=== PATIENT | male | born 1955 | race Caucasian/White ===

== ENCOUNTER 2018-09-29 10:49 | Day surgery (SDC) | payer MEDICARE, OTHER ==
[~2018-09-29] VITALS: Ht 167.6 cm; Wt 100.1 kg
[2018-09-29 12:18] VITALS: BP 155/86; PULSE 76; TEMP 97.5
[2018-09-29] MEDS ORDERED: RT ADVAIR 528 DISKUS IH (12:54)
[2018-09-29] MEDS ORDERED: PRINZIDE 12.5 M1 TA1 PO (12:55)
[2018-09-29] MEDS ORDERED: PREVACID 30MG30 M1 PO (12:58)
[2018-09-29 14:45] VITALS: BP 149/84; PULSE 79; TEMP 97.8
[2018-09-29 15:00] VITALS: BP 155/89; PULSE 77
[2018-09-29 15:15] VITALS: BP 166/87; PULSE 73
== END 2018-09-29 15:36 | disposition home or self-care (01) ==
LOC: SDCO 10:49
DX: N13.5 Crossing vessel and stricture of ureter without hydronephrosis (principal); R31.0 Gross hematuria; J44.9 Chronic obstructive pulmonary disease, unspecified; K21.9 Gastro-esophageal reflux disease without esophagitis; I10 Essential (primary) hypertension; Z85.51 Personal history of malignant neoplasm of bladder; Z90.49 Acquired absence of other specified parts of digestive tract; Z87.891 Personal history of nicotine dependence
CPT/HCPCS: C1726; C1769; C2617; J0690; J1100; J1885; J1940; J2405; J2704; J3010; J7120; Q9967

== ENCOUNTER 2018-10-05 06:54 | Day surgery (SDC) | payer MEDICARE, OTHER ==
[2018-10-05] VITALS (9 sets, daily range): BP systolic 137–166; BP diastolic 46–95; PULSE 85–95; TEMP 98
[~2018-10-05] VITALS: Ht 167.6 cm; Wt 99.3 kg
[~2018-10-05 06:54] MED LIST: PREVACID 30MG30 M1 PO; PRINZIDE 12.5 M1 TA1 PO; RT ADVAIR 528 DISKUS IH
== END 2018-10-05 15:45 | disposition home or self-care (01) ==
LOC: SDCO 06:54
DX: R31.0 Gross hematuria (principal); R93.41 Abnormal radiologic findings on diagnostic imaging of renal pelvis, ureter, or bladder; J44.9 Chronic obstructive pulmonary disease, unspecified; K21.9 Gastro-esophageal reflux disease without esophagitis; I10 Essential (primary) hypertension; Z90.49 Acquired absence of other specified parts of digestive tract; Z85.51 Personal history of malignant neoplasm of bladder; Z87.891 Personal history of nicotine dependence; Z80.9 Family history of malignant neoplasm, unspecified
CPT/HCPCS: C1769; J0690; J1100; J1170; J2175; J2405; J2704; J3010; J7120; Q9967

== ENCOUNTER → 2018-11-08 | Outpatient (CLI) | payer MEDICARE, OTHER | LOC: COL.RAD 10:37 | DX: N28.89 Other specified disorders of kidney and ureter (principal); R31.0 Gross hematuria; R93.422 Abnormal radiologic findings on diagnostic imaging of left kidney; Z90.49 Acquired absence of other specified parts of digestive tract | CPT/HCPCS: Q9967 ==

== ENCOUNTER 2018-12-07 11:32 | Inpatient (IN) | payer MEDICARE, OTHER ==
[~2018-12-07] VITALS: Ht 167.6 cm; Wt 102.0 kg
[2018-12-12 08:15] LABS: ALBUMIN 4.1 gm/dL (3.5-5.0); BILIRUBIN,TOTAL 0.4 mg/dL (0.0-1.0); CALCIUM 9.8 mg/dL (8.4-10.2); CREATININE, serum 0.76 mg/dL (0.66-1.25); POTASSIUM 4.3 mmol/L (3.4-5.0); TOTAL PROTEIN 7.2 gm/dL (6.4-8.2)
[2018-12-13] VITALS (11 sets, daily range): BP systolic 94–144; BP diastolic 67–89; PULSE 74–110; TEMP 97.7–98.5
--- NOTE | 2018-12-13 18:25 | NUR ---
Pt arrived to floor at 1800 via bed with PACU staff. Awake and alert, feeling well, requesting ice and ice water. VSS. 02 at 2LNC. De Guzman draining red urine in scant amount. ROSSY to abd draining red serous fluid. Epidural at 8 ccs and hour and has a demand dose as needed, discussed purpose and use. Called RT for IS. Lungs are wheezy expiratory, chronic issue for patient. L wrist is ART line is dressed and CDI. 3 lap sites, LUQ site has some bloody drainage and covered with bandaid, others are CDI. Midline abd dressing CDI. Pt doing well, family at bedside, will give bedside shift report to nightshift nurse who will resume care.
--- NOTE | 2018-12-13 19:30 | NUR ---
Received report from AMANDA Mac. Assessment completed. Patient is A&O x 4, answers all questions appropriately. Does appear to have some forgetfullness at this time. Patient is hooked up to post-op vitals, HR is tachycardiac in the low 100's. Currently on 3 liters of supplemental O2 via nasal cannula. Denies any pain. Epidural is intact running @ 8 ml/hr with a patient demand. Wheezing heard through lungs, clears with coughing. Abdominal lap sites x 3 with bandaids, drainage on two of the lap sites. Abdominal gauze/medipore dressing at the proximal end at shift change was saturated with drainage through gown and blankets, ABD applied to proximal area. Right sided ROSSY with bulb to suction, small amount of bloody output. Hypoactive bowel sounds, denies passing any gas. De Guzman catheter to DD with red-tinged urine draining, adequate urine output at this time. BLE scds on. IVF infusing with intermittent antibiotic per orders. Family is at bedside. Denies any concerns or needs at this time. Bed is in a low position with call light in reach.
--- NOTE | 2018-12-13 22:00 | NUR ---
Patient is sitting up in bed watching television. Has been tolerating water and ice chips with no c/o nausea, is not interested in this time of any other clear liquids. ABD that was applied to dressing at beginning of shift has remained CDI. De Guzman catheter continues to drain clear blood-tinged urine. Family has left for the evening. Patient denies any concerns or needs.
[2018-12-14] VITALS (9 sets, daily range): BP systolic 107–147; BP diastolic 61–89; PULSE 85–99; TEMP 98–98.8
--- NOTE | 2018-12-14 05:59 | NUR ---
Patient has rested intermittently through the night. VSS, titrated supplemental O2 down to 1 liter this morning. Epidural remains intact and infusing for pain control, continues to deny any pain. Abdominal lap sites and dressings have no additional drainage. ROSSY bulb to suction with a total of 50 ml of bloody output. De Guzman catheter to DD with bloody output, adequate urine output through this shift. IVF remains infusing with intermittent antibiotic per orders. Denies any concerns or needs, call light within reach.
[2018-12-14 06:07] LABS: BASO % 0.2 % (0.0-2.0); GRAN # 8.6 (1.4-6.5); GRAN % 83.8 % (42.2-75.2); HEMOGLOBIN 11.5 g/dl (13.5-18.0); LYMPH # 0.8 (1.2-3.4); LYMPH % 8.2 % (20.0-51.0); MEAN CELL VOLUME 89 fl (80.0-100.0); MEAN CORPUSCULAR HEMOGLOBIN 29 pg (27.0-31.0); MEAN CORPUSCULAR HGB CONC 33 g/dl (33.0-37.0); MEAN PLATELET VOLUME 10.3 fl (7.4-10.4); MONO # 0.8 (0.1-0.6); MONO % 7.5 % (1.7-9.3); PLATELET COUNT 197 K/mm3 (130-400); RED BLOOD COUNT 3.95 M/mm3 (4.20-5.60); REDCELL DISTRIBUTION WIDTH-CV 12.5 % (11.5-14.5)
[2018-12-14 06:09] LABS: HEMATOCRIT 35.2 % (42.0-52.0)
[2018-12-14 06:25] LABS: CALCIUM 7.7 mg/dL (8.4-10.2); CREATININE, serum 1.65 mg/dL (0.66-1.25); POTASSIUM 4.1 mmol/L (3.4-5.0)
--- NOTE | 2018-12-14 06:30 | NUR ---
Report on to Chacha RN. Pt. VSS. IV/INT RT hand no swelling, redness, drainage. Breakfast ordered CL Diet. Epidural site no redness, drainage, swelling. Dsg on abdomen CDI. Pt. sitting up on bed call light within reach.
--- NOTE | 2018-12-14 09:00 | NUR ---
Patient alert and oriented, answers questions appropriately. See assessment. Abdomen soft, non distended, non tender. Bowel sounds distant. No flatus. Lap sites and transverse incision with dressing clean, dry and intact. ROSSY drain to RUQ compressed, bloody drainage noted. De Guzman catheter patent and draining clear red urine. Epidural catheter in place with no drainage noted at site. PCEA settings verified against the MAR. Numbness noted to abdomen to mid bilateral thighs, pulses palpable. No other c/o at this time.
--- NOTE | 2018-12-14 09:34 | NUR ---
Initial visit; Patient thanked Test Car Driver for looking in on him and keeping him in her prayers.
--- NOTE | 2018-12-14 10:00 | NUR ---
Report off to Chacha PATEL epidural dsg was coming off. Applied tegaderm. No redness, drainage, or edema.
--- NOTE | 2018-12-14 13:26 | NUR ---
Report off to Chacha PATEL. Pt. AOx4 VSS. In bed call light within reach and at bedside. F/U with pain and pain is at 0/10. IV site LT antecubital no redness drainage or edema.
--- NOTE | 2018-12-14 13:35 | NUR ---
SHITAL and SW student met with the patient and the patient's to discuss discharge plan. The patient lives in [place] with his , Kat. The patient does not have any DME and reports independence with ADLs. The patient's PCP is Dr. Mu Lassiter and he receives his medications through [facility] or at [facility] in [place]. The patient's advance directives are in EMR. The patient plans to return home with his upon discharge. No additional needs at this time.
--- NOTE | 2018-12-14 20:00 | NUR ---
Pt. sitting up in bed at this time. Pt. is A&OX3, assessment complete. IV to rt. hand patent, IV fluids infusing per orders. Epidural intact, pt. denies pain. Abd. incisions with gauze dressing CDI. ROSSY drain with serosanguinous drainage noted. Pt. denies further needs, call light within reach.
[2018-12-15 04:51] VITALS: BP 121/64; PULSE 81; TEMP 98.2
[2018-12-15 06:07] LABS: HEMOGLOBIN 10.8 g/dl (13.5-18.0); MEAN CELL VOLUME 90 fl (80.0-100.0); MEAN CORPUSCULAR HEMOGLOBIN 30 pg (27.0-31.0); MEAN CORPUSCULAR HGB CONC 33 g/dl (33.0-37.0); MEAN PLATELET VOLUME 10.3 fl (7.4-10.4); PLATELET COUNT 160 K/mm3 (130-400); RED BLOOD COUNT 3.66 M/mm3 (4.20-5.60); REDCELL DISTRIBUTION WIDTH-CV 12.7 % (11.5-14.5)
--- NOTE | 2018-12-15 06:08 | NUR ---
Pt. slept well through the night. Pt. remains A&OX3. Epidural intact. Dressing to abd. incisions CDI, ROSSY drain with serosanguinous drainage. Pt. denies further needs at this time. Call light within reach.
[2018-12-15 06:11] LABS: HEMATOCRIT 32.8 % (42.0-52.0)
[2018-12-15 06:14] LABS: CREATININE, serum 1.51 mg/dL (0.66-1.25); POTASSIUM 3.9 mmol/L (3.4-5.0)
--- NOTE | 2018-12-15 07:50 | NUR ---
Patient alert and oriented, answers questions appropriately. See assessment. Abdomen firm, distended. Bowel sounds audible x4 quads. ROSSY to RLQ with bloody drainage noted, bulb compressed. Midline incision with edges well approximated, terra intact, redness noted around midline. Lap sites x4 with edges well approximated, terra intact. De Guzman catheter patent and draining clear dark red urine, no clots noted. Epidural catheter intact, no redness or drainage noted at site. PCEA shut off at this time per drs order. C/o mild bloating, encouraged ambulation and warm blanket to abdomen. No other c/o at this time.
[2018-12-15 08:00] VITALS: BP 149/69; PULSE 84; TEMP 98.3
[2018-12-15 08:04] VITALS: TEMP 98.3
--- NOTE | 2018-12-15 08:05 | NUR ---
ROSSY drain removed from RLQ per drs order.
[2018-12-15 12:00] VITALS: BP 136/54; PULSE 88; TEMP 98.4
--- NOTE | 2018-12-15 13:14 | NUR ---
Patient sitting in recliner. Call light within reach. De Guzman intact, INT/ epidural site no redness, drainage, or edema. Dsg on RLQ clear with tegaderm. Incision sites CDI.
[2018-12-15 15:55] VITALS: BP 156/74; PULSE 85; TEMP 98.1
--- NOTE | 2018-12-15 20:30 | NUR ---
Pt. sitting up in bed watching TV at this time. Pt. is A&OX3, assessment complete. INT to rt. hand patent. De Guzman catheter to DD, reddish urine noted. Abd. incision well approximated. PT. denies pain or other needs at this time. Call light within reach.
[2018-12-15 21:10] VITALS: BP 123/61; PULSE 83; TEMP 98
[2018-12-16 05:36] VITALS: BP 166/70; PULSE 78; TEMP 98.3
--- NOTE | 2018-12-16 06:37 | NUR ---
Pt. laying in bed. Pt. is A&OX3. INT to rt. hand patent. Pt. denies pain. De Guzman catheter to DD with red urine noted. Pt. denies pain or other needs, call light within reach.
[2018-12-16 08:26] VITALS: BP 129/83; PULSE 93; TEMP 98.3
[2018-12-16 12:35] VITALS: BP 124/61; PULSE 98; TEMP 99.2
[2018-12-16 16:29] VITALS: BP 142/79; PULSE 100; TEMP 98.4
--- NOTE | 2018-12-16 18:00 | NUR ---
Independent in halls with walker. Had loose stools x 2 in AM. De Guzman catheter draining vega red urine with rare clots. Catheter irrigated x one this shift. Complained of bladder spasms at times. Mild nausea. Appetite poor. Good urine output.
--- NOTE | 2018-12-16 20:45 | NUR ---
Pt resting in bed, co C/O pain at this time, shift assessments complete, left Pt call light in reach, bed in lowest position.
[2018-12-16 21:16] VITALS: BP 122/98; PULSE 86; TEMP 98.5
[2018-12-16 23:59] VITALS: BP 125/60; PULSE 89; TEMP 99.9
[2018-12-17] VITALS (12 sets, daily range): BP systolic 114–160; BP diastolic 42–75; PULSE 83–104; TEMP 97.5–98.7
--- NOTE | 2018-12-17 05:51 | NUR ---
Pt slept during the night, no C/O pain during the shift, he has had several small bowel movements and is passing gas, he was able to sit on the toilet early this AM with assistance, and using his walker. VS have remained stable.
[2018-12-17 06:54] LABS: HEMOGLOBIN 10.2 g/dl (13.5-18.0); MEAN CELL VOLUME 90 fl (80.0-100.0); MEAN CORPUSCULAR HEMOGLOBIN 30 pg (27.0-31.0); MEAN CORPUSCULAR HGB CONC 33 g/dl (33.0-37.0); MEAN PLATELET VOLUME 10.4 fl (7.4-10.4); PLATELET COUNT 173 K/mm3 (130-400); RED BLOOD COUNT 3.44 M/mm3 (4.20-5.60); REDCELL DISTRIBUTION WIDTH-CV 12.8 % (11.5-14.5)
[2018-12-17 07:00] LABS: CALCIUM 8.3 mg/dL (8.4-10.2); CREATININE, serum 1.44 mg/dL (0.66-1.25); POTASSIUM 3.9 mmol/L (3.4-5.0)
[2018-12-17 07:19] LABS: HEMATOCRIT 30.8 % (42.0-52.0)
--- NOTE | 2018-12-17 08:15 | NUR ---
Ambulatory in room. Complained of bladder spasms. De Guzman catheter draining vega red urine with small clots in tubing. Levsin given.
--- NOTE | 2018-12-17 09:30 | NUR ---
Dr. Holder saw patient and irrigated catheter. Talked to patient about plan for CT scan.
--- NOTE | 2018-12-17 10:20 | NUR ---
B&O suppository given for bladder pain.
--- NOTE | 2018-12-17 10:50 | NUR ---
Valium given per order prior to scan.
--- NOTE | 2018-12-17 13:00 | NUR ---
Dr. Holder talked with patient and spouse about CT results and plan for surgery.
--- NOTE | 2018-12-17 14:35 | NUR ---
Medicated with Morphine for c/o abdominal pain. NPO for surgery. Surgical consent signed.
--- NOTE | 2018-12-17 16:15 | NUR ---
To surgery per bed with OR staff. Family here.
--- NOTE | 2018-12-17 19:40 | NUR ---
Pt. arrived to the floor from PACU. Pt. is A&OX3, assessment complete. IV to rt. upper arm patent, IV fluids infusing per orders. De Guzman catheter to DD, clear vega red urine noted. Epidural intact. Abdominal midline incision CDI with gauze. ROSSY drain to abdomen, bloody drainage noted. Pt. denies pain or other needs at this time. Call light within reach.
[2018-12-18 00:25] VITALS: BP 104/50; PULSE 88; TEMP 98.3
[2018-12-18 05:02] VITALS: BP 123/48; PULSE 87; TEMP 98.6
--- NOTE | 2018-12-18 05:30 | NUR ---
Pt. laying in bed at this time. Pt. aroused to verbal stimuli. Pt. reports feeling the need to urinate, and pressure. Holm catheter manipulated to see if urine flowing. Pt. does have some urine flow. Pt. request to have catheter irrigated. Catheter irrigated with 20 mls of sterile water. Was able to retrieve all the irrigant instilled, one tiny clot noted. holm reconnected to holm bag. Gave pt. a Levsin and pt. pushed epidural button. Pt did report having some relief after that. IV to lt. hand patent, IV fluids infusing per orders. Bed Changed and pericare provided. Pt. denies further needs, call light within reach.
[2018-12-18 06:18] LABS: MEAN CELL VOLUME 93 fl (80.0-100.0); MEAN CORPUSCULAR HGB CONC 32 g/dl (33.0-37.0); MEAN PLATELET VOLUME 10.2 fl (7.4-10.4); PLATELET COUNT 185 K/mm3 (130-400); RED BLOOD COUNT 3.24 M/mm3 (4.20-5.60); REDCELL DISTRIBUTION WIDTH-CV 12.9 % (11.5-14.5)
[2018-12-18 06:31] LABS: HEMOGLOBIN 9.7 g/dl (13.5-18.0); MEAN CORPUSCULAR HEMOGLOBIN 30 pg (27.0-31.0)
[2018-12-18 06:35] LABS: CREATININE, serum 1.29 mg/dL (0.66-1.25)
--- NOTE | 2018-12-18 07:11 | NUR ---
report from Derrek PATEL.
[2018-12-18 07:21] VITALS: BP 132/65; PULSE 87; TEMP 98.4
--- NOTE | 2018-12-18 08:49 | NUR ---
DR HOUSTON IN TO SEE PATIENT. SEE COMPUTER FOR NEW ORDERS,. DRESSING TO MIDLINE CDI . ROSSY DRAIN WITH SANGUEOUS DRAINAGE.
[2018-12-18 11:59] VITALS: BP 104/77; PULSE 64; TEMP 98.2
[2018-12-18 16:09] VITALS: BP 109/55; PULSE 89; TEMP 98.8
--- NOTE | 2018-12-18 20:30 | NUR ---
Assessment completed. Patient is A&O x 4. VSS, on room air. Epidural is intact and infusing for pain control. Abdominal lap sites x 3 with terra intact and midline with gauze dressing with drainage noted. ROSSY bulb to suction with serosangeout output. Denies passing any gas. Bowel sounds present. Tolerating diet with no c/o nausea. De Guzman catheter to DD with pink urine draining with noticable clots. Patient reports that he's had bladder spasms this evening and thought his medication was scheduled, reviewed Levsin orders with patient and prn dose given this evening. IVF infusing per orders. Ambulated with assist x 2 out of the chair this evening and then standby assist with ambulating, patient has a steady gait. Denies any concerns or needs at this time, call light is within reach.
[2018-12-18 20:37] VITALS: BP 108/75; BP 168/75; PULSE 95; TEMP 98.2
[2018-12-19 02:13] VITALS: BP 129/70; PULSE 83; TEMP 98.5
--- NOTE | 2018-12-19 04:14 | NUR ---
Patient has been resting well through the night. VSS, remains on room air. Epidural remains intact and infusing for pain control. Levsin given per request around the clock as patient has bladder spasms that he reports come and go. Abdominal midline and ROSSY gauze dressing reinforced at this time due to drainage. Abdomen is soft and distended, reports passing gas. ROSSY had a total of 60 ml of serosangeious output. De Guzman catheter to DD with pink urine draining with small amount of clots noted. IVF remain infusing per orders. Denies any concerns or needs at this time, call light remains within reach.
--- NOTE | 2018-12-19 06:00 | NUR ---
Patient is up ambulating the hallway with staff at this time. Has made two laps around the surgical floor with walker, gait is steady.
[2018-12-19 07:36] VITALS: BP 130/63; PULSE 83; TEMP 97.6
[2018-12-19 07:57] LABS: MEAN CELL VOLUME 91 fl (80.0-100.0); MEAN CORPUSCULAR HGB CONC 33 g/dl (33.0-37.0); MEAN PLATELET VOLUME 9.9 fl (7.4-10.4); PLATELET COUNT 192 K/mm3 (130-400); RED BLOOD COUNT 3.25 M/mm3 (4.20-5.60); REDCELL DISTRIBUTION WIDTH-CV 12.8 % (11.5-14.5)
--- NOTE | 2018-12-19 08:00 | NUR ---
PATIENT IS A&O. VSS. DENIES PAIN. EPIDURAL INPLACE. PATIENT C/O BLOATING AND TIGHT ABD. ABD IS DISTENDED, FIRM AND WITH HYPO BOWL SOUNDS X4 QUADS. PATIENT IS PASSING GAS. NO BM YET. PATIENT ENCOURAGED TO CHEW GUM. EDUCATED ABOUT STRAWS AND CARBINATION. WARM BLANKET APPLIED TO ABD FOR COMFORT AND BOWL STIMULATION. ABD MIDLINE DRESSING IS CD&I WITH GAUZE. ABD LAP SITES X3 LAILA WITH SUJATA INTACT. ROSSY DRAIN TO COMPRESSION. DENIES C/O N/V. IV FLUIDS INFUSING VIA PUMP. VAN TO DEPENDENT DRAINAGE WITH MOD AMOUNTS OF PINL COLORED URINE WITH SEDIMENT NOTED. PATIENT C/O BLADDER SPASMS. GAVE SCHEDULED OXYBUTININ. PATIENT REFUSED B&O AT THIS TIME. WILL MONITOR. HEAD TO TOE ASSESSMENT COMPLETE. PATIENT UP IN BEDSIDE CHAIR WITH CALL LIGHT IN REACH.
[2018-12-19 08:03] LABS: HEMATOCRIT 29.5 % (42.0-52.0); HEMOGLOBIN 9.6 g/dl (13.5-18.0); MEAN CORPUSCULAR HEMOGLOBIN 30 pg (27.0-31.0)
[2018-12-19 08:09] LABS: CALCIUM 8.1 mg/dL (8.4-10.2); CREATININE, serum 1.16 mg/dL (0.66-1.25); POTASSIUM 3.8 mmol/L (3.4-5.0)
--- NOTE | 2018-12-19 11:45 | NUR ---
DC'D ROSSY DRAIN PER ORDERS. PATIENT TOLERATED WELL. COVERED SITE WITH 4X4'S AND OCCLUSIVE TAPE.
[2018-12-19 11:59] VITALS: BP 113/72; PULSE 90; TEMP 98.3
[2018-12-19 15:58] VITALS: BP 135/64; PULSE 88; TEMP 98.5
--- NOTE | 2018-12-19 19:41 | NUR ---
Assessment completed. Patient is A&O x 4 sitting up in the recliner. VSS, on room air. Epidural is intact and infusing for pain control. Abdomen is soft and distended. Patient reports he feels less "bloated" than he did earlier today. Reports passing gas, passed along from day shift that he has had a few loose bowel movements today. Continues to report passing gas. Abdominal lap sites x 3 with terra. Midline abdominal incision with stables and steri strips, no drainage noted. Previous right sided ROSSY site noticed to have some drainage, removed old dressing and new gauze dressing placed. Retention sutures x 2 with small tubing noted. De Guzman catheter to DD with pink urine draining with a small amount of clots. Denies any bladder spasms. Tolerating diet with no c/o nausea. IVF infusing with intermittent antibiotic per orders. Will ambulate in the hallway this evening. Denies any concerns or needs at this time, call light is within reach.
[2018-12-19 20:03] VITALS: BP 123/59; PULSE 91; TEMP 98.4
--- NOTE | 2018-12-19 20:30 | NUR ---
Patient had a moderate sized amount of liquid stool. Afterwards ambulated two and half laps around the surgical floor with walker, gait steady. Patient does have some wheezing when up ambulating in the hallway.
--- NOTE | 2018-12-19 22:30 | NUR ---
Patient is resting in bed with eyes closed and even respirations. Epidural button is witin reach for pain control. Bed remains in a low position with call light in reach.
[2018-12-19 23:38] VITALS: BP 122/66; PULSE 76; TEMP 98.2
[2018-12-20 04:20] VITALS: BP 138/58; PULSE 81; TEMP 98.3
--- NOTE | 2018-12-20 05:34 | NUR ---
Patient has rested well the beginning of the night and was up for awhile early this morning, currently resting in bed with eyes closed and even respirations. VSS, remains on room air. Epidural remains intact and infusing for pain control. Abdominal midline with terra. Gauze dressing to previous ROSSY site has remained CDI. De Guzman catheter to DD with pink clear urine draining at this time, denies any bladder spasms. IVF remain infusing per orders. Call light remains within reach.
--- NOTE | 2018-12-20 07:05 | NUR ---
awake resting in bed, bedside shift report received from AMANDA Leavitt, c/o bladder spasm and medicated with levxin 0.125mg po, asking to take a walk, informed him when done with report someone will be in to assist him up
--- NOTE | 2018-12-20 07:10 | NUR ---
Report given to AMANDA Mercer.
--- NOTE | 2018-12-20 07:39 | NUR ---
ambulating in [facility]aza with physical therapy, moves with steady gait
[2018-12-20 08:08] VITALS: BP 192/79; PULSE 102; TEMP 97.8
[2018-12-20 08:36] VITALS: BP 148/69
--- NOTE | 2018-12-20 09:00 | NUR ---
sitting up in chair and continues to have bladder spasms after levsin and oxybutinin, medicated with B&O suppository at this time, has declined to take dulcolax supp as he is passing flatus and having loose bowel movements, full assessment completed, has audible wheezing when having spasm and when up and moving around, lungs are CTA, just c/o that being in bed and the recliner are just uncomfortable, will rest in bed for now, incision with retention sutures intact with small piece of foam dressing over,
--- NOTE | 2018-12-20 09:45 | NUR ---
in bed and appears to be sleeping, resp quiet and easy
--- NOTE | 2018-12-20 10:34 | NUR ---
awake now and states he does think the B&O suppository helped with the spasm, is visiting with a friend
[2018-12-20 11:15] VITALS: BP 161/79; PULSE 88; TEMP 98.1
--- NOTE | 2018-12-20 11:15 | NUR ---
epidural shut off at this time, Dr Holder in to see patient, urine remains bloody in color and few small clots
--- NOTE | 2018-12-20 11:30 | NUR ---
medicated with valium 5mg po for bladder spasm, IV fluids to INT, continues to visit with a friend
--- NOTE | 2018-12-20 12:00 | NUR ---
epidural catheter discontinued with tip intact, tolerated well, is able to get and ambulate independently in the [facility] and in the peraza
--- NOTE | 2018-12-20 13:41 | NUR ---
up and about in room independently, had lunch and tolerated well
--- NOTE | 2018-12-20 14:00 | NUR ---
now feels like he may need the dulcolax suppository to help with passing flatus, given supp and will now try to rest
--- NOTE | 2018-12-20 15:00 | NUR ---
resting in bed, Dr Sparks was in to see patient, catheter care provided, stat loc for catheter repositioned to loosen tension on catheter
--- NOTE | 2018-12-20 16:00 | NUR ---
up and about, medicated with levsin, 0.125mg for bladder spasms
[2018-12-20 16:22] VITALS: BP 167/72; PULSE 96; TEMP 98
--- NOTE | 2018-12-20 16:53 | NUR ---
medicated with roxicodone 5mg po for c/o pain, abdomen remains distended and slightly firm, states has passed some flatus this afternoon
--- NOTE | 2018-12-20 17:45 | NUR ---
continues to be up and about independently in room and in the peraza, denies further needs
--- NOTE | 2018-12-20 18:59 | NUR ---
bedside shift report given to AMANDA Leavitt
--- NOTE | 2018-12-20 19:30 | NUR ---
Assessment completed. Patient is A&O x 4. VSS, on room air. Reports bladder spasms this evening that he states isn't as bad as it has been but requests medication for, prn medication given. Abdomen is soft and distended with active bowel sounds. Patient had a small bowel movement at shift change. Abdominal midline with terra and steri-strips, dry drainage noted on steri-strips. Abdominal lap sites x 3 with terra intact. Two sets of abdominal retention sutures with tubing in place. Previous right sided ROSSY site with gauze dressing is CDI. De Guzman catheter remains to DD with pink clear urine draining. INT to left hand with intermittent antibiotic. Patient has been up ambulating the hallways indepedently with walker, gait is steady. Denies any concerns or needs at this time. Bed is in a low position with call light in reach.
[2018-12-20 20:14] VITALS: BP 137/85; PULSE 78; TEMP 98.6
--- NOTE | 2018-12-21 00:41 | NUR ---
Patient ambulated to the bathroom, reports having a lot of gas no bowel movement at this time. De Guzman catheter is draining a yellow clear color at this time. Denies any bladder spasms.
[2018-12-21 03:35] VITALS: BP 140/70; PULSE 82; TEMP 98.6
--- NOTE | 2018-12-21 06:17 | NUR ---
Patient has rested well through the night. VSS, remains on room air. Reports occassionally having bladder spasms states it's better than yesterday. Abdominal midline and lap sites remain the same from the beginning of the shift. Patient did have a very large soft-formed bowel movement this morning. Continues to ambulate around the surgical floor with a steady gait. De Guzman catheter to DD with light pink color draining. Denies any concerns or needs at this time, call light is within reach.
--- NOTE | 2018-12-21 06:45 | NUR ---
up and about in room, bedside shift report received from AMANDA Leavitt
--- NOTE | 2018-12-21 08:25 | NUR ---
resting in bed, has had breakfast and tolerated well, full assessment completed, see interventions for further info, lungs with expiratory wheezing, has just finished using inhaler, encouraged to cough and deep breath and verbalizes understanding
[2018-12-21 08:47] VITALS: BP 142/65; PULSE 96; TEMP 98.6
--- NOTE | 2018-12-21 09:40 | NUR ---
continues to appear to sleep
--- NOTE | 2018-12-21 10:00 | NUR ---
awake now and resting in bed, states is feeling better today and had a good nap,
--- NOTE | 2018-12-21 10:47 | NUR ---
Dr Holder was in to see patient and will plan discharge later, is ready for a shower
--- NOTE | 2018-12-21 10:52 | NUR ---
GEOTHERMAL PLANT MANAGER in and will assist him with taking a shower
--- NOTE | 2018-12-21 11:04 | NUR ---
SHITAL met with the patient and patient's , Kat, to discuss physical therapies recommendation of a front wheeled walker and a stool riser. The patient reports that he is interested in getting those items. SHITAL discussed [employer] companies. The patient's preferred [facility]. SHITAL contacted and faxed the patient's walker order to [facility]. Michelle, at [facility], reports that they do not the size of walker the patient needs. SHITAL informed the patient and patient's . The patient's then preferred [facility]. SHITAL then contacted and faxed a referral to Elizabeth at [facility]. SHITAL awaiting to hear back from her.
[2018-12-21] MEDS ORDERED: CIPRO 500MG TA500 MG PO (11:06)
[2018-12-21] MEDS ORDERED: LEVSIN0.125 M1 PO (11:07)
[2018-12-21] MEDS ORDERED: PERCOCET 325 MG1 TA2 PO (11:08)
[2018-12-21] MEDS ORDERED: SENOKOT S 50 MG1 TAB PO (11:08)
--- NOTE | 2018-12-21 11:50 | NUR ---
sitting up on side of bed, discharge instructions given to patient and his including catheter care and use of leg bag, is an RN and verbalizes she is very comfortable with doing this,
--- NOTE | 2018-12-21 12:00 | NUR ---
testicles and penis is edematous, assessed and they are soft, encouraged him to place ice and lift them up on a pillow or folled towel when he gets home, is aware and both verbalize understanding
--- NOTE | 2018-12-21 12:40 | NUR ---
discharged per WC
--- NOTE | 2018-12-21 12:52 | NUR ---
Mike, at [facility], reports that they have the size of walker the patient needs. SHITAL informed the patient and patient's . The patient's plans to corn picker the front wheeled walker at [facility] on their way home. HSITAL updated Mike at [facility]. Patient choice form was signed by the patient and he was provided a copy. The patient's reports that they are also going to have their daughter purchase a stool riser for the patient at [facility] in [place]. The patient is to discharge back home with his today, 12/21. SHITAL presented and explained the IM form to the patient. The patient verbalized understanding, signed, and he was provided a copy. No additional needs at this time.
== END 2018-12-21 12:40 | disposition home or self-care (01) | DRG 657 ==
LOC: SURG 12-13 07:30 → INPTSU 12-13 09:57 → SURG 12-13 12:00 → JCC 12-13 18:40 → SURG 12-21 07:30 → JCC 12-21 12:40
PROVIDERS: ADMIT Urology
PROC: 0TJB0ZZ Inspection of Bladder, Open Approach (ICD-10-PCS; 2018-12-13)
PROC: 0TB70ZZ Excision of Left Ureter, Open Approach (ICD-10-PCS; 2018-12-13)
PROC: 0TT10ZZ Resection of Left Kidney, Open Approach (ICD-10-PCS; principal; 2018-12-13 12:00)
PROC: 0WQF0ZZ Repair Abdominal Wall, Open Approach (ICD-10-PCS; 2018-12-19)
PROC: 0TJB0ZZ Inspection of Bladder, Open Approach (ICD-10-PCS; 2018-12-19)
DX: C65.2 Malignant neoplasm of left renal pelvis (principal); T81.32XA Disruption of internal operation (surgical) wound, not elsewhere classified, initial encounter; K43.2 Incisional hernia without obstruction or gangrene; J44.9 Chronic obstructive pulmonary disease, unspecified; I10 Essential (primary) hypertension; Z85.51 Personal history of malignant neoplasm of bladder; Z87.891 Personal history of nicotine dependence; N32.89 Other specified disorders of bladder; R31.0 Gross hematuria
CPT/HCPCS: A4314; A9284; J0690; J1100; J1650; J2250; J2270; J2405; J2704; J2765; J2795; J3010; J7030; J7120

== ENCOUNTER → 2018-12-27 | Outpatient (CLI) | payer MEDICARE, OTHER ==
[~2018-12-27] MED LIST changes: +CIPRO 500MG TA500 MG PO; +LEVSIN0.125 M1 PO; +PERCOCET 325 MG1 TA2 PO; +SENOKOT S 50 MG1 TAB PO
== END ==
LOC: COL.RAD 08:39
DX: N28.89 Other specified disorders of kidney and ureter (principal); R93.422 Abnormal radiologic findings on diagnostic imaging of left kidney; Z90.5 Acquired absence of kidney
CPT/HCPCS: Q9967

== ENCOUNTER → 2019-11-19 | Outpatient (CLI) | payer MEDICARE, OTHER ==
--- NOTE | 2019-11-16 10:57 | NUR ---
lmom with instructions and call back number
[2019-11-19] VITALS (10 sets, daily range): BP systolic 123–162; BP diastolic 81–95; PULSE 77–99
[~2019-11-19] VITALS: Ht 167.6 cm; Wt 96.0 kg
[~2019-11-19] MED LIST changes: +GLUCOPHAGE500 MG/TAB PO; +PROTAMINE; +PROTONIX 40MG T40 MG PO
--- NOTE | 2019-11-19 14:40 | NUR ---
pt to ct per ambulation. Pt positioned in prone position on ct table. Monitors applied to pt.
--- NOTE | 2019-11-19 14:55 | NUR ---
Pt given meds for anxiety and to relax pt per instructions of Dr Long.
--- NOTE | 2019-11-19 15:00 | NUR ---
O2 at 2l/nc placed on pt due to decreased o2 saturation.
--- NOTE | 2019-11-19 15:03 | NUR ---
Specimens obtained by Dr Long and placed in formalin. Specimen labeled.
== END ==
LOC: COL.RAD 12:52
DX: N28.89 Other specified disorders of kidney and ureter (principal); Z85.53 Personal history of malignant neoplasm of renal pelvis
CPT/HCPCS: J2250; J3010